=== PATIENT | male | born 2000 | race Caucasian/White ===

== ENCOUNTER → 2025-01-19 | Outpatient (CLI) | payer OTHER, SELFPAY ==
--- NOTE | 2025-01-19 13:46 | RAD_ITS ---
PROCEDURE: SHOULDER MIN 2 VIEWS 01/19/2025 REASON FOR EXAM: STRAIN OF MUSCLE FASCIA AND TENDON TECHNIQUE: Procedure Code: RADSH Modality: DX Procedure: SHOULDER MIN 2 VIEWS Laterality: Left shoulder. COMPARISON: None FINDINGS: Bones: No fracture seen. Joints: Normal alignment of the acromioclavicular and glenohumeral joints. Soft tissues: Soft tissues are unremarkable. Other: RAD/Shoulder min 2 Views IMPRESSION: NO ACUTE FRACTURE OR DISLOCATION. Reading Location: [id number]
== END | disposition home or self-care (01) ==
PROVIDERS: PCP Family Medicine; Referring Provider Nurse Practitioner Family; Visit Provider Nurse Practitioner Family
DX: S46.912A Strain of unspecified muscle, fascia and tendon at shoulder and upper arm level, left arm, initial encounter (principal)
CPT/HCPCS: 73030